=== PATIENT | male | born 1985 | race Caucasian/White ===

== ENCOUNTER → 2022-04-12 | Outpatient (CLI) | payer BC | LOC: M CLY 10:13 | PROVIDERS: ATTEND Nurse Practitioner Family | DX: M54.9 Dorsalgia, unspecified (principal) ==

== ENCOUNTER → 2023-09-08 | Outpatient (REF) | payer BC ==
[2023-09-08 18:24] LABS: BASO # 0.1 10^3/uL (0.0-0.2); BASO % 1.1 % (0.0-1.0); EOS # 0.1 10^3/uL (0.0-0.5); EOS % 1.7 % (0.0-3.0); HEMATOCRIT 40.8 % (42.0-52.0); HEMOGLOBIN 13.3 g/dl (13.5-17.5); LYMPH # 2.2 10^3/uL (1.5-5.0); LYMPH % 33.1 % (24.0-44.0); MEAN CORPUSCULAR HEMOGLOBIN 33.3 pg (27.0-33.0); MEAN CORPUSCULAR HGB CONC 32.6 g/dl (32.0-36.5); MONO # 0.6 10^3/uL (0.0-0.8); MONO % 8.5 % (2.0-8.0); NEUTROPHILS # 3.6 10^3/uL (1.5-8.5); NEUTROPHILS % 55.3 % (36.0-66.0); PLATELET COUNT, AUTOMATED 292 10^3/uL (150-450); WHITE BLOOD COUNT 6.5 10^3/uL (4.0-10.0)
[2023-09-08 18:31] LABS: FREE T4 1.02 NG/DL (0.89-1.76)
[2023-09-08 18:34] LABS: ALBUMIN 3.8 G/DL (3.2-5.2); ALKALINE PHOSPHATASE 79 U/L (46-116); ALT/SGPT 34 U/L (7.0-40); AST/SGOT 26 U/L (<34); BILIRUBIN,TOTAL 0.4 MG/DL (0.3-1.2); BLOOD UREA NITROGEN 14 MG/DL (9-23); CALCIUM LEVEL 9.3 MG/DL (8.5-10.1); CARBON DIOXIDE LEVEL 30 MMOL/L (20-31); CHLORIDE LEVEL 107 MMOL/L (98-107); CHOLESTEROL LEVEL 192 MG/DL (<200); CHOLESTEROL RISK RATIO 5.27 (<5); CREATININE FOR GFR 1.03 MG/DL (0.70-1.30); GLOMERULAR FILTRATION RATE > 60.0 (>60); GLUCOSE, FASTING 93 MG/DL (60-100); HDL CHOLESTEROL 36.4 MG/DL (>40); LDL CHOLESTEROL 133.6 MG/DL (<100); NON-HDL-C 155.6 MG/DL; POTASSIUM SERUM 5.3 MMOL/L (3.5-5.1); SODIUM LEVEL 141 MMOL/L (136-145); TOTAL PROTEIN 6.9 G/DL (5.7-8.2); TRIGLYCERIDES LEVEL 110 MG/DL (<150)
[2023-09-08 18:42] LABS: HEMOGLOBIN A1c 5.7 % (4.0-6.0)
== END ==
LOC: M SFHCCLAY 11:38
PROVIDERS: ATTEND Nurse Practitioner Family
DX: Z00.00 Encounter for general adult medical examination without abnormal findings (principal); R06.83 Snoring; F32.A Depression, unspecified; F41.9 Anxiety disorder, unspecified; R60.0 Localized edema; E78.5 Hyperlipidemia, unspecified

== ENCOUNTER → 2024-06-18 | Outpatient (CLI) | payer BC | LOC: M SLEEP HO 11:52 | PROVIDERS: ATTEND Nurse Practitioner Family | DX: G47.33 Obstructive sleep apnea (adult) (pediatric) (principal); R06.83 Snoring ==

== ENCOUNTER → 2024-09-13 | Outpatient (REF) | payer BC ==
[2024-09-13 18:27] LABS: ALBUMIN 3.9 G/DL (3.2-5.2); ALKALINE PHOSPHATASE 77 U/L (40-129); ALT/SGPT 43 U/L (7.0-40); AST/SGOT 27 U/L (<34); BILIRUBIN,TOTAL 0.5 MG/DL (0.3-1.2); BLOOD UREA NITROGEN 14 MG/DL (9-23); CALCIUM LEVEL 9.4 MG/DL (8.5-10.1); CARBON DIOXIDE LEVEL 26 MMOL/L (20-31); CHLORIDE LEVEL 106 MMOL/L (98-107); CHOLESTEROL LEVEL 227 MG/DL (<200); CHOLESTEROL RISK RATIO 5.86 (<5); CREATININE FOR GFR 0.85 MG/DL (0.70-1.30); GLOMERULAR FILTRATION RATE > 60.0 (>60); GLUCOSE, FASTING 92 MG/DL (60-100); HDL CHOLESTEROL 38.7 MG/DL (>40); LDL CHOLESTEROL 163.3 MG/DL (<100); NON-HDL-C 188.3 MG/DL; POTASSIUM SERUM 4.6 MMOL/L (3.5-5.1); SODIUM LEVEL 138 MMOL/L (136-145); TOTAL PROTEIN 7.6 G/DL (5.7-8.2); TRIGLYCERIDES LEVEL 125 MG/DL (<150)
[2024-09-13 18:30] LABS: FREE T4 1.12 NG/DL (0.89-1.76)
[2024-09-13 18:31] LABS: THYROID STIMULATING HORMONE 2.092 uIU/ML (0.55-4.78)
[2024-09-13 18:53] LABS: HEMOGLOBIN A1c 5.7 % (4.0-6.0)
== END ==
LOC: M SFHCCLAY 11:40
PROVIDERS: ATTEND Nurse Practitioner Family
DX: Z00.00 Encounter for general adult medical examination without abnormal findings (principal); R06.83 Snoring; F32.A Depression, unspecified; F41.9 Anxiety disorder, unspecified; R60.0 Localized edema; E78.5 Hyperlipidemia, unspecified

== ENCOUNTER → 2024-10-18 | Outpatient (REF) | payer BC ==
[2024-10-18 19:30] LABS: ALKALINE PHOSPHATASE 82 U/L (40-129); ALT/SGPT 49 U/L (7.0-40); AST/SGOT 26 U/L (<34); BILIRUBIN,TOTAL 0.4 MG/DL (0.3-1.2); BLOOD UREA NITROGEN 12 MG/DL (9-23); CALCIUM LEVEL 9.2 MG/DL (8.5-10.1); CARBON DIOXIDE LEVEL 28 MMOL/L (20-31); CHLORIDE LEVEL 105 MMOL/L (98-107); CREATININE FOR GFR 0.89 MG/DL (0.70-1.30); GLOMERULAR FILTRATION RATE > 60.0 (>60); GLUCOSE, FASTING 104 MG/DL (60-100); POTASSIUM SERUM 4.6 MMOL/L (3.5-5.1); SODIUM LEVEL 141 MMOL/L (136-145); TOTAL PROTEIN 7.5 G/DL (5.7-8.2)
== END ==
LOC: M SFHCCLAY 09:52
PROVIDERS: ATTEND Nurse Practitioner Family
DX: Z68.42 Body mass index [BMI] 45.0-49.9, adult (principal)

== ENCOUNTER → 2024-11-15 | Outpatient (CLI) | payer BC | LOC: M RAD 08:57 | PROVIDERS: ATTEND Nurse Practitioner Family | DX: K76.0 Fatty (change of) liver, not elsewhere classified (principal); R93.9 Diagnostic imaging inconclusive due to excess body fat of patient ==

== ENCOUNTER → 2024-12-23 | Outpatient (CLI) | payer BC | LOC: M WUC 11:35 | PROVIDERS: ATTEND Student in an Organized Health Care Education/Training Program | DX: M25.572 Pain in left ankle and joints of left foot (principal) ==

== ENCOUNTER → 2025-07-05 | Outpatient (CLI) | payer BC ==
[2025-07-05 11:34] LABS: ALT/SGPT 44 U/L (7.0-40); AST/SGOT 31 U/L (<34); IRON (FE) 113 UG/DL (65-175); PERCENT SATURATION 35.5 % (19.7-50.0)
[2025-07-05 11:35] LABS: INR 0.92
[2025-07-05 11:43] LABS: HEPATITIS B SURFACE ANTIBODY NEGATIVE (POSITIVE)
[2025-07-05 12:15] LABS: HEPATITIS C VIRUS ABY INDEX 0.07 INDEX (<0.8)
[2025-07-08 09:53] LABS: HEPATITIS A IgG TOTAL REACTIVE (NON-REACTIVE)
[2025-07-08 11:13] LABS: ALPHA 1 ANTITRYPSIN 128 mg/dL (83-199); CERULOPLASMIN 24.0 mg/dL (14-30)
[2025-07-08 14:54] LABS: ANTI-MITOCHONDRIAL ANTIBODY NEGATIVE (NEGATIVE)
[2025-07-08 18:07] LABS: T P ELECTROPHORESIS SO 7.2 g/dL (6.1-8.1)
[2025-07-08 22:17] LABS: LIVER-KIDNEY MICROSOMAL ABY <= 20.0 U (<=20.0)
[2025-07-09 06:37] LABS: ALBUMIN SPEP 4.2 g/dL (3.8-4.8); ALPHA-1-GLOBULINS SO 0.3 g/dL (0.2-0.3); ALPHA-2-GLOBULINS SO 0.7 g/dL (0.5-0.9); BETA 2 GLOBULIN 0.5 g/dL (0.2-0.5); BETA-GLOBULIN SO 0.4 g/dL (0.4-0.6); GAMMA GLOBULINS SO 1.1 g/dL (0.8-1.7)
[2025-07-09 22:26] LABS: ANTI-SMOOTH MUSCLE ANTIBODY < 20 U (<20)
[2025-07-14 19:57] LABS: ALPHA 2-MACROGLOBULINS,QN 198 mg/dL (106-279); ALT (SGPT) P5P 31 U/L (9-46); APOLIPOPROTEIN A-1 135 mg/dL (94-176); FIBROSIS SCORE 0.16; FIBROSIS STAGE NO FIBROSIS (F0); GGT 31 U/L (3-95); HAPTOGLOBIN 159 mg/dL (43-212); NECROINFLAM ACT GRADE NO ACTIVITY (A0); NECROINFLAM ACT SCORE 0.13
== END ==
LOC: M LAB 10:21
PROVIDERS: ATTEND Physician Assistant
DX: R94.5 Abnormal results of liver function studies (principal); Z80.0 Family history of malignant neoplasm of digestive organs; K76.0 Fatty (change of) liver, not elsewhere classified

== ENCOUNTER → 2025-07-24 | Outpatient (CLI) | payer BC | LOC: M SLEEP 20:00 | PROVIDERS: ATTEND Physician Assistant | DX: G47.33 Obstructive sleep apnea (adult) (pediatric) (principal) ==